=== PATIENT | female | born 1990 | race Caucasian/White ===

== ENCOUNTER 2019-10-29 06:00 | Day surgery (SDC) | payer OTHER ==
[2019-10-29] MEDS ORDERED: Lactated Ringers 1,000 ML IV SCH (06:30)
[2019-10-29] MEDS ORDERED: Xylocaine-Mpf 2% 5 Ml Vial ONE (07:21)
[2019-10-29] MEDS ORDERED: DIPRIVAN 200 MG/20 ML IV ONE (07:21)
[2019-10-29] MEDS ORDERED: Zofran 4 MG/2 ML VIAL ONE (07:21)
[2019-10-29] MEDS ORDERED: Decadron 4 MG INJ ONE (07:21)
[2019-10-29] MEDS ORDERED: Versed 2 MG/2 ML Injection ONE (07:22)
[2019-10-29] MEDS ORDERED: SUBLIMAZE 100 MCG/2 ML ONE (07:22)
[2019-10-29] MEDS ORDERED: Lactated Ringers 1,000 ML IV ONE (08:25)
[2019-10-29] MEDS ORDERED: TORAdol 30 mg Injection ONE (08:36)
[2019-10-29 09:35] VITALS: O2SAT 97
[2019-10-29 09:55] VITALS: BP 115/77; PULSE 90
--- NOTE | 2019-10-30 07:51 | OP ---
SURGERY DATE/TIME: 10/29/2019 0752 PREOPERATIVE DIAGNOSIS: Abnormal uterine bleeding. POSTOPERATIVE DIAGNOSIS: Abnormal uterine bleeding. PROCEDURE: Hysteroscopy, D&C. SURGEON: Sridhar Mendez D.O. ANESTHESIA: General. ESTIMATED BLOOD LOSS: Minimal. COMPLICATIONS: None. INDICATIONS: The risks, benefits, indications and alternatives of the procedure were reviewed with the patient prior to the procedure. The patient understood the risk of infection, bleeding, bowel injury, bladder injury, ureteral injury, uterine perforation, pelvic infection associated with the surgery and desired to have this surgery as a possible need to alleviate her current medical condition. DESCRIPTION OF PROCEDURE AND FINDINGS: At this point the patient is taken to the operating room, given general sedation, placed in dorsal lithotomy position. Prepped and draped in the usual sterile fashion. A weighted speculum is then placed in the patient's vagina and at this point tenaculum was placed along the anterior lip of the cervix for stabilization and the cervix was then dilated with dilators. At this point a 5 mm hysteroscope was then introduced to the endocervical canal where visualization in the endocervical cavity revealed no gross abnormalities. From this point after complete visualization the hysteroscope was then removed and the curette was then placed into the fundus of the uterus where curettage performed in all quadrants of the uterus retrieving a mild to moderate amount of endometrial tissue. From this point hemostasis was obtained. All instruments were then removed from the patient's vaginal region. The patient was then taken out of dorsal lithotomy position, taken out of anesthesia and was then taken to the recovery room in stable condition. All instruments and laps were accounted for x2.
== END 2019-10-29 09:55 | disposition home or self-care (01) ==
LOC: SDC 06:00
PROVIDERS: ATTEND Obstetrics & Gynecology
DX: N93.9 Abnormal uterine and vaginal bleeding, unspecified (principal)
CPT/HCPCS: 84703; 88305; J1100; J1885; J2250; J2405; J2704; J3010

== ENCOUNTER 2020-12-29 06:31 | Day surgery (SDC) | payer BC ==
[~2020-12-29 06:31] MED LIST: Lactated Ringers 1,000 ML IV SCH
[2020-12-29] MEDS ORDERED: CEFAZOLIN 2 GM-D5W BAG** 2 GM/50 ML ML IV SCH (07:00)
[2020-12-29] MEDS ORDERED: SUBLIMAZE 100 MCG/2 ML ONE ×2 (08:20→08:45)
[2020-12-29] MEDS ORDERED: DIPRIVAN 200 MG/20 ML IV ONE (08:20)
[2020-12-29] MEDS ORDERED: Versed 2 MG/2 ML Injection ONE (08:20)
[2020-12-29] MEDS ORDERED: TORAdol 30 mg Injection ONE (08:20)
[2020-12-29] MEDS ORDERED: Zofran 4 MG/2 ML VIAL ONE (08:20)
[2020-12-29] MEDS ORDERED: Decadron 4 MG INJ ONE (08:20)
[2020-12-29 10:02] VITALS: O2SAT 98
[2020-12-29 10:09] VITALS: BP 113/54; PULSE 78
--- NOTE | 2020-12-30 09:04 | OP ---
SURGERY DATE/TIME: 12/29/2020 0833 PREOPERATIVE DIAGNOSIS: Abnormal uterine bleeding. POSTOPERATIVE DIAGNOSIS: Abnormal uterine bleeding. PROCEDURE: Hysteroscopy, D&C with NovaSure ablation. SURGEON: Sridhar Mendez D.O. [employer] DES[employer]ER: Linda Morales director surgical. ANESTHESIA: General. ESTIMATED BLOOD LOSS: Minimal. COMPLICATIONS: None. INDICATIONS: The risks, benefits, indications and alternatives of the procedure were reviewed with the patient prior to the procedure. The patient understood the risk of infection, bleeding, bowel injury, bladder injury, ureteral injury, uterine perforation associated with the surgery however desires to have this surgery as a possible means to alleviate her current medical condition. DESCRIPTION OF PROCEDURE AND FINDINGS: At this point the patient is taken to the operating room, given general sedation, placed in dorsal lithotomy position, prepped and draped in the usual sterile fashion. A weighted speculum is then placed in the patient's vagina and the anterior lip of the cervix was grasped with a single tooth tenaculum. Endocervical dilators were advanced through the endocervical canal as a means to dilate the cervix and the uterus was sounded to approximately 8 to 9 cm. From this point the hysteroscope was then placed in through the endocervical canal where visualization revealed no gross abnormalities of the endometrial lining. From this point the hysteroscope was removed and a curette was then placed into the fundus of the uterus and curettage was performed in all quadrants of the uterus retrieving moderate amount of tissue. From this point curette was removed and the NovaSure was then placed in through the endocervical canal where it had reached fundal region and was retracted approximately 1 cm. The measurement was 5.5 cm and was engaged. The machine was turned on for an ablative time of approximately 59 seconds with a width of 3.0. After completion of the ablation the NovaSure was disengaged and removed the uterine cavity without complication. From this point all instruments were then removed from the patient's vaginal region. The patient was then taken out of the dorsal lithotomy position, was taken out of anesthesia and was then taken to the recovery room in stable condition. All instruments and laps were accounted for x2.
== END 2020-12-29 10:15 | disposition home or self-care (01) ==
LOC: SDC 06:31
PROVIDERS: ATTEND Obstetrics & Gynecology
DX: N93.9 Abnormal uterine and vaginal bleeding, unspecified (principal)
CPT/HCPCS: 84703; J0690; J1100; J1885; J2250; J2405; J2704; J3010